=== PATIENT | male | born 1990 | race Caucasian/White ===

== ENCOUNTER 2025-04-26 12:06 | Emergency (ER) | payer SELFPAY ==
--- NOTE | 2025-04-26 12:07 | ED_ITS ---
HPI - Ear Problem General Chief complaint: Upper Respiratory Infection Stated complaint: ear clog,ringing,headache Time Seen by Provider: 04/26/25 12:07 Source: patient Mode of arrival: ambulatory Limitations: no limitations History of Present Illness HPI Narrative: Noé is a 35-year-old male patient presenting to the clinic today with complaints of left ear ringing, ear pain, and feeling as though his ear is clogged and is giving him a headache x1 day. He reports he has recently swim last night.. He denies any fevers, chills, body aches. No URI symptoms. Related Data Allergies Allergy/AdvReac Type Severity Reaction Status Date / Time No Known Allergies Allergy Verified 04/26/25 12:16 Review of Systems Review of Systems: Pertinent positives per HPI. Patient denies any fever, chills, rash, headache, visual changes, dizziness, cough, runny nose, sore throat, shortness of breath, chest pain, palpitations, nausea, vomiting, diarrhea, constipation, abdominal pain, or any urinary issues. PMFSH Comments At the time of my signature, I reviewed and agree with the nursing past medical, surgical, social, and family history. There is no relevant family history pert inent to the patient complaint. Exam Narrative: General: Well-developed, well nourished, in no apparent distress Head: Normocephalic, atraumatic Eyes: Pupils equally round and reactive to light bilaterally, EOM intact, sclera and conjunctive clear, no discharge, lids normal Ears: Right TM intact and clear, right ear canal clear, left ear canal impacted with cerumen, ear irrigation was performed successfully, right TM intact, bulging, red, no drainage, grossly hearing normal. Nose: Nares patent, no discharge, no inflammation, no sinus tenderness. Mouth: Oropharynx without lesions or masses, good dentition, MMM. Neck: Supple, trachea midline, no enlargement of anterior or posterior cervical nodes, no thyroid masses or goiter palpable. Cardio: Regular rate and rhythm, s1 and s2 normal, no murmur appreciated. Resp: Clear to auscultation bilaterally anteriorly and posteriorly, no rhonchi, rales, wheezing or rubs Course Course Emergency Course: Portions of this record may have been created with voice recognition software. Level of Care: Express Care Visit Vital Signs Vital signs: Vital Signs Temperature 36.8 C 04/26/25 12:15 Pulse Rate 94 04/26/25 12:15 Respiratory Rate 16 04/26/25 12:15 Blood Pressure 139/95 H 04/26/25 12:15 Pulse Oximetry 98 04/26/25 12:15 Oxygen Delivery Room Air 04/26/25 12:15 Temperature 36.8 C 04/26/25 12:15 Pulse Rate 94 04/26/25 12:15 Respiratory Rate 16 04/26/25 12:15 Blood Pressure 139/95 H 04/26/25 12:15 Pulse Oximetry 98 04/26/25 12:15 Oxygen Delivery Room Air 04/26/25 12:15 Vital signs reviewed Procedures Ear Wax Removal Left Ear: Ear Wax Removal Date: 04/26/25 Cerumenolytic Used: other (Debrox) Results: Re-examined: cerumen removed completely TM Examination: TM(s) intact, normal appearance Ear Canal Exam: atraumatic Patient Tolerated Procedure: well and no complications Complications: no problems Technique: ear canal irrigated and ear canal curetted Additional Comments: Verbal consent obtained for ear irrigation. Risk and benefits explained and patient voiced understanding. Ear irrigation performed using an elephant ear and spray water bottle. Mixture of 1/2 peroxide 1/2 water used to irrigate ear canal. Cerumen impaction cleared and TM visualized without redness. Grossly hearing normal. Patient tolerated procedure well Medical Decision Making MDM Narrative Medical decision making narrative: At the time of visit patient is resting comfortably on the exam table. Patient appears to be nontoxic. Procedures: Ear irrigation was performed successfully to the left ear canal. Plan: I suspect patient had cerumen impaction that was irrigated successfully. Does have a left otitis media. Prescription for amoxicillin was sent to the pharmacy. Supportive measures were discussed with the patient and they voiced understanding discharge instructions and agrees to treatment plan. Return precautions reviewed Differential Diagnosis Differential Diagnosis: Otitis media, otitis externa, eustachian tube dysfunction, cerumen impaction, upper respiratory infection, serous otitis, Meniere's disease, Vital Signs Vital Signs: Vital Signs Temperature 36.8 C 04/26/25 12:15 Pulse Rate 94 04/26/25 12:15 Respiratory Rate 16 04/26/25 12:15 Blood Pressure 139/95 H 04/26/25 12:15 Pulse Oximetry 98 04/26/25 12:15 Oxygen Delivery Room Air 04/26/25 12:15 Temperature 36.8 C 04/26/25 12:15 Pulse Rate 94 04/26/25 12:15 Respiratory Rate 16 04/26/25 12:15 Blood Pressure 139/95 H 04/26/25 12:15 Pulse Oximetry 98 04/26/25 12:15 Oxygen Delivery Room Air 04/26/25 12:15 Discharge Plan Discharge Clinical Impression: Acute left otitis media Cerumen impaction Qualifiers: Laterality: left Qualified Code(s): H61.22 - Impacted cerumen, left ear Patient Disposition: Home Condition: Stable Instructions: Antibiotic Form, Ear Infection (ED), Earache (ED) Additional Instructions: Ear irrigation was performed successfully in the left ear. Take any prescribed medications only as directed-amoxicillin Tylenol/motrin as needed for pain May use heating pad to alleviate pain If you get recurrent ear infections it may be warranted to follow up with ENT. Follow up with your PCP in 3-5 days if symptoms persist. Patient Language: [place] Prescriptions: New amoxicillin 875 mg tablet 875 mg PO Q12H 7 Days Qty: 14 0RF Follow-up/Referrals: PHYSICIAN,CABLEWAY OPERATOR [Primary Care Provider] - Time of Disposition: 12:44 Quality NIHSS Nursing Documentation ED NIHSS nursing documentation: reviewed/agree
[2025-04-26 12:15] VITALS: BP 139/95; PULSE 94; RESP 16; TEMP 36.8; O2SAT 98
[2025-04-26] MEDS: CARBAMIDE PEROXIDE 6.5% OT SOLN 15 ML BTL 5 DROP LEFT EAR (12:23)
[2025-04-26] MEDS: HYDROGEN PEROXIDE 3% SOLN(*SP) 473 ML BOTTLE 30 ML IRRIGATION (12:23)
== END 2025-04-26 12:47 | disposition home or self-care (01) ==
PROVIDERS: Emergency Provider Nurse Practitioner Family; Referring Provider Family Medicine
DX: H61.22 Impacted cerumen, left ear (principal); H66.92 Otitis media, unspecified, left ear
CPT/HCPCS: 69210; 99203; A9270; G0463